=== PATIENT | female | born 1955 | race Caucasian/White ===

== ENCOUNTER 2022-04-18 05:43 | Day surgery (SDC) | payer MEDICAID ==
[2022-04-16 11:06] LABS: BASOPHILS % (AUTO) 0.5 % (0-1); EOSINOPHILS # (AUTO) 0.1 X10'3 (0-0.9); EOSINOPHILS % (AUTO) 1.3 % (0-6); LYMPHOCYTES # (AUTO) 1.9 X10'3 (1.1-4.8); LYMPHOCYTES % (AUTO) 41.1 % (21-51); MEAN CORPUSCULAR HEMOGLOBIN 30.1 PG (27.0-31.0); MEAN CORPUSCULAR HGB CONC 33.4 g/dL (33.0-36.5); MEAN CORPUSCULAR VOLUME 90.1 FL (78-98); MONOCYTES # (AUTO) 0.3 X10'3 (0-0.9); MONOCYTES % (AUTO) 5.8 % (2-12); NEUTROPHILS # (AUTO) 2.4 X10'3 (1.8-7.7); NEUTROPHILS % (AUTO) 51.3 % (42-75); PRE OP HEMOGLOBIN 13.4 g/dL (12.0-16.0); PRE OP PLATELET COUNT 229 X10'3 (140-440); RED BLOOD COUNT 4.44 X10'6 (4.20-5.60); RED CELL DISTRIBUTION WIDTH 13.4 % (11.5-14.5)
[2022-04-16 11:22] LABS: ALBUMIN 3.5 G/DL (3.4-5.0); ALKALINE PHOSPHATASE 72 IU/L (46-116); BLOOD UREA NITROGEN 15 MG/DL (7-18); BUN/CREATININE RATIO 23.4 (6.6-38.0); CALCIUM 9.2 MG/DL (8.5-10.1); CHLORIDE 104 MMOL/L (99-107); CREATININE 0.64 MG/DL (0.40-0.90); PRE OP ALT 26 U/L (30-65); PRE OP ANION GAP 6 (8-16); PRE OP AST 20 U/L (10-37); PRE OP BILIRUB, TOTAL 0.3 MG/DL (0.0-1.0); PRE OP GLUCOSE 90 MG/DL (70-104); PRE OP POTASSIUM 4.4 MMOL/L (3.4-5.1); PRE OP SODIUM 139 MMOL/L (135-145); TOTAL CARBON DIOXIDE 28.8 MMOL/L (24-32); TOTAL PROTEIN 7.1 G/DL (6.4-8.2); eGFR > 90 ML/MIN
[~2022-04-18] VITALS: Ht 157.5 cm; Wt 66.1 kg
[2022-04-18] VITALS (9 sets, daily range): BP systolic 103–132; BP diastolic 51–77
[~2022-04-18 05:43] MED LIST: ACET-2119 PO; ASCO-283 PO; BIOTIN PO; CALCIUM PO; ESTR1TAB28 PO; FERR-116 PO; IBUP-24 PO; IBUPROFEN PO; LEVO150T8 PO; MULTIVITAMIN PO; NAPR220T67 PO; VITA-268 PO; [UNRECOGNIZED DRUG - OTHER] PO; ceFAZolin inj. 2,000 MG in dextrose 5%-water 100 ML IV ONE; famotidine 20mg tablet PO ONE; ringers solution, lacted 1,000 ML IV SCH
[2022-04-18] MEDS ORDERED: BUPIVAcaine 0.5% inj/PF 30 ML ONE (06:39)
[2022-04-18] MEDS ORDERED: LIDOcaine 1% 30ml preserv. free vial ONE (06:39)
[2022-04-18] MEDS ORDERED: BUPIVAcaine 0.5% inj/PF 30 ml vial IJ ONE (07:02)
[2022-04-18] MEDS ORDERED: fentaNYL /PF 50mcg/ml 5ml ampule ONE (07:35)
[2022-04-18] MEDS ORDERED: midazolam 1 mg/ML 2ml injection ONE (07:35)
[2022-04-18] MEDS ORDERED: HYDROcodone/acetaminophen 5mg/325mg tablet PO PRN (07:45)
[2022-04-18] MEDS ORDERED: labetalol 20mg/4ml (5mg/ml) syringe IV PRN (08:05)
[2022-04-18] MEDS ORDERED: ringers solution, lacted 1,000 ML IV SCH (08:05)
[2022-04-18] MEDS ORDERED: ondansetron/PF 4mg/2ml inj IV PRN (08:05)
[2022-04-18] MEDS ORDERED: hydrALAZINE 20mg/ml inj. IV PRN (08:05)
[2022-04-18] MEDS ORDERED: acetaminophen 1,000mg/100ml IV 100 ML IV PRN (08:05)
[2022-04-18] MEDS ORDERED: meperidine/PF 25mg/ml syringe IV PRN ×2 (08:05)
[2022-04-18] MEDS ORDERED: proCHLORperazine 10 MG/2 ml inj IV PRN (08:05)
[2022-04-18] MEDS ORDERED: morphine 4 MG/ML inj SYRINge IV PRN (08:05)
[2022-04-18] MEDS ORDERED: morphine 2 MG/ML inj. syringe IV PRN (08:05)
[2022-04-18] MEDS ORDERED: propofol inj 20 ML IV ONE (08:43)
[2022-04-18] MEDS ORDERED: dexamethasone sod phosphate 4mg/ml inj. ONE (08:43)
[2022-04-18] MEDS ORDERED: LIDOcaine 2% (20mg/ml) 5ml vial ONE (08:43)
[2022-04-18] MEDS ORDERED: 0.9 % SODIUM CHLORIDE 10 ML VIAL ONE (08:44)
[2022-04-18] MEDS ORDERED: ondansetron/PF 4mg/2ml inj ONE (08:44)
[2022-04-18] MEDS ORDERED: rocuronium 10mg/ml inj IV ONE (08:44)
[2022-04-18] MEDS ORDERED: ePHEDrine 50MG/ML INJ. ONE (08:44)
[2022-04-18] MEDS ORDERED: neostigmine methylsulfate 1 MG/ML 10ml vial ONE (08:52)
[2022-04-18] MEDS ORDERED: glycopyrrolate 0.2mg/ml inj ONE (08:52)
--- NOTE | 2022-04-18 09:06 | NUR ---
Received from OR via [email or web address] , accompanied by Anesthesiologist and report given by DAVID Anesthesiologist. PATIENT A&OX4, DENIES PAIN, V/S WNL, SCD ON , PIV 20G RUE, DERMABONDED LAPS SITES CLOSED CDI TO ABDOMEN. Addendum: 04/18/22 at 0923 by Lucho Fernandez RN Amended: Links added. Addendum: 04/18/22 at 0935 by Luhco Fernandez RN Received from OR via [facility] , accompanied by Anesthesiologist and report given by DAVID Anesthesiologist. PATIENT A&OX4, DENIES PAIN, V/S WNL, SCD ON , PIV 20G LH, DERMABONDED LAPS SITES CLOSED CDI TO ABDOMEN.
[2022-04-18] MEDS: meperidine/PF 25mg/ml syringe IV PRN ×2 (09:11→09:34)
--- NOTE | 2022-04-18 10:16 | NUR ---
ALL DISCHARGE CRITERIA HAS BEEN MET. VSS, PAIN AT A TOLERABLE LEVEL, ABLE TO SAFELY AMBULATE AND TRANSFER SELF. IV TAKEN OUT WITHOUT ANY COMPLICATIONS. ALL DISCHARGE INSTRUCTIONS COVERED WITH PATIENT AND ALL QUESTIONS ANSWERED. PATIENT TAKEN OUT VIA WHEELCHAIR WITH ALL BELONGINGS TO PERSONAL VEHICLE WHERE FAMILY DROVE PATIENT HOME. Addendum: 04/18/22 at 1028 by Lucho Fernandez RN Amended: Links added.
== END 2022-04-18 10:16 | disposition home or self-care (01) ==
LOC: PAS 05:43
PROVIDERS: ATTEND Surgery
DX: K40.20 Bilateral inguinal hernia, without obstruction or gangrene, not specified as recurrent (principal); K43.9 Ventral hernia without obstruction or gangrene; K41.90 Unilateral femoral hernia, without obstruction or gangrene, not specified as recurrent; E03.9 Hypothyroidism, unspecified; G89.29 Other chronic pain; M54.9 Dorsalgia, unspecified; Z98.84 Bariatric surgery status; Z90.710 Acquired absence of both cervix and uterus; Z90.49 Acquired absence of other specified parts of digestive tract; Z82.49 Family history of ischemic heart disease and other diseases of the circulatory system; Z82.61 Family history of arthritis; Z79.1 Long term (current) use of non-steroidal anti-inflammatories (NSAID); Z79.890 Hormone replacement therapy; Z79.899 Other long term (current) drug therapy
CPT/HCPCS: 36415; 49650; 49652; 49659; 80053; 82948; 85025; 93005; C1781; J0131; J0690; J1100; J2175; J2250; J2270; J2405; J2704; J2710; J3010; J3490; J7030; J7060; J7120; S0020; S2900; Z7506; Z7508; Z7512; A4215; A4618

== ENCOUNTER 2024-08-04 13:33 | Outpatient (CLI) | payer MEDICARE, MEDICAID ==
[~2024-08-04 13:33] MED LIST changes: -ceFAZolin inj. 2,000 MG in dextrose 5%-water 100 ML IV ONE; -famotidine 20mg tablet PO ONE; -ringers solution, lacted 1,000 ML IV SCH
== END 2024-08-04 23:59 | disposition home or self-care (01) ==
LOC: RAD 13:33
PROVIDERS: ATTEND Family Medicine
DX: I67.82 Cerebral ischemia (principal); R41.0 Disorientation, unspecified
CPT/HCPCS: 70450